=== PATIENT | male | born 1990 | race Caucasian/White ===

== ENCOUNTER 2018-10-24 20:35 | Emergency (ER) | payer OTHER ==
[2018-10-24] MEDS ORDERED: Naproxen TAB* 250 MG PO ONE ×2 (20:59→21:37)
[2018-10-24] MEDS ORDERED: HYDROcodone/ACETAMIN 5-325 MG* 1 TAB PO ONE (20:59)
[2018-10-24] MEDS ORDERED: Lidocaine 1%* 5 ML VIAL INJ ONE (21:10)
--- NOTE | 2018-10-24 21:27 | UC ---
Upper Extremity HPI - HPI Summary HPI Summary: 28 year old male presents with left thumb injury. States he jumped onto a beanbag chair and he jammed his thumb into the floor causing hyperextension injury. Complains of pain at the DIP. Unable to flex his thumb. Sensation intact. Patient significant other states he became lightheaded from the pain while transporting to the clinic. Patient denies LOC, headache, visual disturbances, chest pain, palpitations, or shortness of breath. - History of Current Complaint Chief Complaint: UCUpperExtremity Stated Complaint: LT HAND-THUMB INJURY Time Seen by Provider: 10/24/18 20:35 Hx Obtained From: Patient Onset/Duration: Sudden Onset Severity Currently: Moderate Pain Intensity: 5 Character: Throbbing Aggravating Factor(s): Movement Alleviating Factor(s): Nothing Associated Signs And Symptoms: Negative: Bruising, Numbness/Tingling - Allergies/Home Medications Allergies/Adverse Reactions: Allergies Allergy/AdvReac Type Severity Reaction Status Date / Time cats, dogs Allergy Rash Uncoded 10/24/18 20:47 seasonal Allergy Congestion Uncoded 10/24/18 20:47 Home Medications: Home Medications Cetirizine* [ZyrTEC 10 MG TAB*] 10 mg PO DAILY 10/24/18 [History Confirmed 10/24] Ibuprofen TAB* [Motrin TAB* 600 MG] 600 mg PO ONCE PRN 10/24/18 [History Confirmed 10/24/18] PMH/Surg Hx/FS Hx/Imm Hx Previously Healthy: Yes - Denies significant PMH - Surgical History Surgical History: Yes Surgery Procedure, Year, and Place: right inguinal hernia with mesh 2013 - Family History Known Family History: Positive: Non-Contributory - Social History Occupation: Employed Full-time Lives: With Family Alcohol Use: Weekly Alcohol Amount: 12 Substance Use Type: Marijuana Substance Use Comment - Amount & Last Used: today Smoking Status (MU): Heavy Every Day Tobacco Smoker Review of Systems All Other Systems Reviewed And Are Negative: Yes Skin: Negative: Bruising Respiratory: Negative: Shortness Of Breath Cardiovascular: Negative: Palpitations, Chest Pain Motor: Negative: Weakness Neurovascular: Negative: Decreased Sensation Musculoskeletal: Positive: Decreased ROM, Other: - See HPI Is Patient Immunocompromised?: No Physical Exam - Summary Physical Exam Summary: GENERAL APPEARANCE: Well developed, well nourished, and alert. Appears to be in mild-moderate pain splinting left hand. CARDIAC: Normal S1 and S2. No S3, S4 or murmurs. Rhythm is regular. There is no peripheral edema, cyanosis or pallor. Extremities are warm and well perfused. LUNGS: Clear to auscultation and percussion without rales, rhonchi, wheezing or diminished breath sounds. ABDOMEN: Positive bowel sounds. Soft, nondistended, nontender. No guarding or rebound. No masses or hepatosplenomegally. MUSKULOSKELETAL: Normal muscular development. Normal gait. Tenderness over the DIP left thumb. There is a deformity noted at the DIP. Unable to flex thumb at the DIP. Mild pallor over the dorsal aspect of the thumb at DIP. Peripheral pulses intact. Sensation intact distally. Capillary refill is less than 2 seconds. NEUROLOGICAL: Awake, alert, and oriented. CN II-XII grossly intact. Good muscle tone. Strength and sensation symmetric and intact throughout. Reflexes 2+ throughout. Cerebellar testing normal. SKIN: General skin color, texture and turgor normal. Triage Information Reviewed: Yes Vital Signs: Initial Vital Signs Temp 98.7 F 10/24/18 20:50 Pulse 78 10/24/18 20:50 Resp 18 10/24/18 20:50 BP 147/80 10/24/18 20:50 Pulse Ox 100 10/24/18 20:50 Vital Signs Reviewed: Yes Procedures - Procedure Summary Procedure Summary: Procedural note: Reduction of dislocation of the left thumb DIP Informed consent was obtained before procedure started and the appropriate timeout was taken. The left thumb was prepped with Betadine and digital block using a total of 5 ml 1% lidocaine without epinephrine was performed with good anesthesia. The DIP was then successfully reduced x 1 attempt. Post-reduction x- ray shows DIP in good alignment. Patient was placed in Stax splint. Pre and post splinting there is good skin color, skin warm to touch, cap refill <2 seconds. Uable to adequately assess sensation d/t digital block. Anticipatory guidance, warning symptoms, and post-reduction care provided to patient. He is to follow up with orthopedic surgery within 7 days for continued care. - Joint Reduction Left Joint Reduction Site: other Specify Other Joint Reduced: DIP thumb Conscious Sedation: No Reduction Attempts: 1 Pre-Procedure NV Exam: Yes Post Joint Reduction Film: joint reduced Re-Evaluation - Re-Evaluation First Eval Re-Evaluation Time: 21:45 Change: Improved Comment: Post-reduction patient reports no pain. Full ROM. Post-reduction x-ray shows DIP in good alignment. Patient placed in Stax splint. Pre and post splinting there is good skin color, skin warm to touch, cap refill <2 seconds. Uable to assess sensation d/t digital block. Upper Extremity Course/Dx - Course Course Of Treatment: 28 year old male presents with left thumb injury. States he jumped onto a beanbag chair and he jammed his thumb into the floor causing hyperextension injury. Complains of pain at the DIP. Unable to flex his thumb. Sensation intact. Patient significant other states he became lightheaded from the pain while transporting to the clinic. Patient denies LOC, headache, visual disturbances, chest pain, palpitations, or shortness of breath. Afebrile. VSS. Exam unremarkable except for gross deformity of the DIP left thumb. X-ray showed a dorsal dislocation of the DIP without fracture. A digital block of the left thumb was performed and the dislocation was successfully reduced without complication. Post-reduction x-ray shows DIP in good alignment. Patient was given naproxen and hydrocodone-acetaminophen 5/325 1 tab for pain and dispensed dose of naproxen for home in the morning. He was placed in Stax splint. Recommend conservative care with NSAIDs and RICE. He is to follow up with orthopedic surgery within 1 week for continued care. Warning signs were reviewed with patient. Verbalizes understanding and agrees with POC. - Differential Dx/Diagnosis Differential Diagnosis/HQI/PQRI: Contusion, Fracture (Closed), Sprain, Other - Dislocation Provider Diagnosis: Dislocation of distal interphalangeal (DIP) joint of left thumb Discharge - Sign-Out/Discharge Documenting (check all that apply): Patient Departure All imaging exams completed and their final reports reviewed: No - Discharge Plan Condition: Stable Disposition: HOME Prescriptions: Naproxen [Naproxen 500 mg tab] 500 mg PO Q12HR #30 tablet Patient Education Materials: Finger Dislocation (ED) Forms: *Work Release Referrals: No Primary Care Phys,NOPCP [Primary Care Provider] - Richard Barkley MD [Medical Doctor] - 7 Days (Call for appointment.) Additional Instructions: Your initial x-ray showed a dislocation of the distal thumb joint. We were able to reduce the dislocation and the follow up x-ray showed a normal joint. I did not see any evidence of a fracture however the x-ray will be reviewed by the radiologist and we will contact you if there is any change in the plan of care. We did a digital block (numbing of the entire finger) of the thumb for the procedure tonight. The numbing will wear off in a couple of hours. We gave you a dose of naproxen as well as hydrocodone-acetaminophen in the clinic tonight to help manage the pain once the numbing wears off. Rest the hand as much as possible. You should wear the splint that was applied. You may remove to shower but wear at all other times. Apply ice to the thumb for 15-20 minutes at least 4 times a day. Keep the hand elevated at the level of the heart to help reduce swelling. Take naproxen 500 mg every 12 hours with food for next 7 days. After 7 days you may take every 12 hours as needed for pain. Follow up with Dr. Barkley, orthopedic surgery, within 7 days for reevaluation. Seek immediate medical attention in the emergency room for pain that is not managed with pain medication, increased swelling, numbness or tingling of the thumb, if the thumb become pale or a blue color, or any worsening of symptoms. - Billing Disposition and Condition Condition: STABLE Disposition: Home
[2018-10-24 22:00] VITALS: BP 117/61
--- NOTE | 2018-10-25 11:06 | ED ---
Progress - Progress Note Progress Note: Xrays final reads reviewed. Possible small chip fracture identified on post reduction film. Patient already in a splint and referred to DR Barkley. Nurses asked to call patient to inform of the chip fracture and reinforce need to follow up with Dr Barkley.. Re-Evaluation - Re-Evaluation First Eval Re-Evaluation Time: 21:45 Change: Improved Comment: Post-reduction patient reports no pain. Full ROM. Post-reduction x-ray shows DIP in good alignment. Patient placed in Stax splint. Pre and post splinting there is good skin color, skin warm to touch, cap refill <2 seconds. Uable to assess sensation d/t digital block. Course/Dx - Course Course Of Treatment: 28 year old male presents with left thumb injury. States he jumped onto a beanbag chair and he jammed his thumb into the floor causing hyperextension injury. Complains of pain at the DIP. Unable to flex his thumb. Sensation intact. Patient significant other states he became lightheaded from the pain while transporting to the clinic. Patient denies LOC, headache, visual disturbances, chest pain, palpitations, or shortness of breath. Afebrile. VSS. Exam unremarkable except for gross deformity of the DIP left thumb. X-ray showed a dorsal dislocation of the DIP without fracture. A digital block of the left thumb was performed and the dislocation was successfully reduced without complication. Post-reduction x-ray shows DIP in good alignment. Patient was given naproxen and hydrocodone-acetaminophen 5/325 1 tab for pain and dispensed dose of naproxen for home in the morning. He was placed in Stax splint. Recommend conservative care with NSAIDs and RICE. He is to follow up with orthopedic surgery within 1 week for continued care. Warning signs were reviewed with patient. Verbalizes understanding and agrees with POC. - Diagnoses Provider Diagnoses: Dislocation of distal interphalangeal (DIP) joint of left thumb Discharge - Sign-Out/Discharge Documenting (check all that apply): Patient Departure All imaging exams completed and their final reports reviewed: Yes - Discharge Plan Condition: Stable Disposition: HOME Prescriptions: Naproxen [Naproxen 500 mg tab] 500 mg PO Q12HR #30 tablet Patient Education Materials: Finger Dislocation (ED) Forms: *Work Release Referrals: Richard Barkley MD [Medical Doctor] - 7 Days (Call for appointment.) No Primary Care Phys,NOPCP [Primary Care Provider] - Additional Instructions: Your initial x-ray showed a dislocation of the distal thumb joint. We were able to reduce the dislocation and the follow up x-ray showed a normal joint. I did not see any evidence of a fracture however the x-ray will be reviewed by the radiologist and we will contact you if there is any change in the plan of care. We did a digital block (numbing of the entire finger) of the thumb for the procedure tonight. The numbing will wear off in a couple of hours. We gave you a dose of naproxen as well as hydrocodone-acetaminophen in the clinic tonight to help manage the pain once the numbing wears off. Rest the hand as much as possible. You should wear the splint that was applied. You may remove to shower but wear at all other times. Apply ice to the thumb for 15-20 minutes at least 4 times a day. Keep the hand elevated at the level of the heart to help reduce swelling. Take naproxen 500 mg every 12 hours with food for next 7 days. After 7 days you may take every 12 hours as needed for pain. Follow up with Dr. Barkley, orthopedic surgery, within 7 days for reevaluation. Seek immediate medical attention in the emergency room for pain that is not managed with pain medication, increased swelling, numbness or tingling of the thumb, if the thumb become pale or a blue color, or any worsening of symptoms. - Billing Disposition and Condition Condition: STABLE Disposition: Home
== END 2018-10-24 22:00 | disposition home or self-care (01) ==
LOC: UCCORT 20:35
DX: S63.125A Dislocation of interphalangeal joint of left thumb, initial encounter (principal); W22.09XA Striking against other stationary object, initial encounter; Y93.89 Activity, other specified; F17.210 Nicotine dependence, cigarettes, uncomplicated
CPT/HCPCS: 26770; 99203; A9270-GY; G0463